=== PATIENT | female | born 1960 | race Two or more races ===

== ENCOUNTER → 2022-04-07 | Outpatient (CLI) | payer MEDICAID ==
[~2022-04-07] MED LIST: ALBUTEROL SULF 2.5 MG/0.5ML(0.5%) NEB SOLN ONE; IODIXANOL 320MG/ML 100ML BTL IV ONE; LIDOCAINE 2%HCL (LOCAL ANESTH.) INJ 20ML MDV ONE
== END | disposition home or self-care (01) ==
LOC: RT 04-03 13:56
PROVIDERS: ATTEND Internal Medicine Pulmonary Disease
DX: J44.9 Chronic obstructive pulmonary disease, unspecified (principal); R06.00 Dyspnea, unspecified; R05.9 Cough, unspecified
CPT/HCPCS: 94060; 94618; 94727; 94729; Q9967